=== PATIENT | male | born 1965 | race Caucasian/White ===

== ENCOUNTER 2022-09-26 06:15 | Day surgery (SDC) | payer MEDICAID ==
[~2022-09-26] VITALS: Ht 185.4 cm; Wt 93.0 kg
[2022-09-26] MEDS ORDERED: LACTATED RINGERS 1,000 ML IV SCH (07:30)
[2022-09-26] MEDS ORDERED: MIDAZOLAM HCL 2 MG/2 ML VIAL ONE (08:09)
[2022-09-26] MEDS ORDERED: PROPOFOL 200MG/20ML VIAL IV ONE (08:09)
[2022-09-26] MEDS ORDERED: FENTANYL CITRATE/PF 50MCG/ML 2ML VIAL ONE (08:09)
[2022-09-26] MEDS ORDERED: BUPIVACAINE HCL/PF 0.5% (5MG/ML) 10ML ONE ×2 (10:01→14:03)
[2022-09-26] MEDS ORDERED: SKIN ADHESIVE 0.7 GM EA TOP ONE (10:02)
[2022-09-26] MEDS ORDERED: CEFAZOLIN SODIUM 1000MG/VIAL ONE (10:03)
[2022-09-26] MEDS ORDERED: HYDROMORPHONE HCL/PF 2MG/ML CPJ ONE (10:18)
[2022-09-26] MEDS ORDERED: KETOROLAC 30MG/ML VIAL ONE (10:32)
[2022-09-26] MEDS ORDERED: ONDANSETRON HCL 4MG/2ML INJ ONE (10:32)
[2022-09-26] MEDS ORDERED: EPHEDRINE SULFATE 50MG/ML VIAL ONE (10:36)
[2022-09-26] MEDS ORDERED: BUPIVACAINE HCL 0.5% 125 ML in ON-Q PM012 DRUG DELIV DEVICE 1 EA IR SCH (11:00)
[2022-09-26] MEDS ORDERED: FENTANYL CITRATE/PF 50MCG/ML 2ML VIAL IV PRN (11:15)
[2022-09-26] MEDS ORDERED: ONDANSETRON HCL 4MG/2ML INJ IV PRN (11:15)
[2022-09-26] MEDS ORDERED: MEPERIDINE HCL/PF 25MG/ML CPJ IV PRN (11:15)
[2022-09-26] MEDS: HYDROMORPHONE HCL/PF 2MG/ML CPJ IV PRN ×4 (11:36→12:29)
[2022-09-26 12:29] VITALS: BP 130/71
== END 2022-09-26 13:50 | disposition home or self-care (01) ==
LOC: OR 06:15
PROVIDERS: ATTEND Surgery
DX: K40.90 Unilateral inguinal hernia, without obstruction or gangrene, not specified as recurrent (principal); Z79.899 Other long term (current) drug therapy; Z98.890 Other specified postprocedural states; Z20.822 Contact with and (suspected) exposure to COVID-19
CPT/HCPCS: 49505; 87426; 88302; C1781; C9803; J0690; J1170; J1885; J2250; J2405; J2704; J3010; J3490